=== PATIENT | male | born 1970 | race Two or more races ===

== ENCOUNTER 2024-07-08 10:19 | Outpatient (CLI) | payer OTHER ==
[~2024-07-08 10:19] MED LIST: DOLOGEN CAPLET1 EACH PO; DOLOGEN CAPLET1 TAB PO; DOLOGESIC CAPLE1 TAB PO; MEDROL4 MG PO
== END 2024-07-08 10:22 | disposition home or self-care (01) ==
LOC: SONOGRAMA 10:19
PROVIDERS: ATTEND Pathology Anatomic Pathology & Clinical Pathology
DX: R22.1 Localized swelling, mass and lump, neck (principal); D48.7 Neoplasm of uncertain behavior of other specified sites